=== PATIENT | male | born 1965 | race Two or more races ===

== ENCOUNTER 2022-05-30 06:49 | Day surgery (SDC) | payer OTHER ==
[~2022-05-30 06:49] MED LIST: METFORMIN HCL500 M3
== END 2022-05-30 18:35 | disposition home or self-care (01) ==
LOC: CIR.AMB 06:49
PROVIDERS: ATTEND Colon & Rectal Surgery
DX: K60.3 Anal fistula (principal); K62.4 Stenosis of anus and rectum; Z20.822 Contact with and (suspected) exposure to COVID-19; E11.9 Type 2 diabetes mellitus without complications; Z79.84 Long term (current) use of oral hypoglycemic drugs